=== PATIENT | female | born 1950 | race Caucasian/White ===

== ENCOUNTER → 2018-03-05 | Outpatient (CLI) | payer MEDICARE, BC ==
[~2018-03-05] MED LIST: COLACE100 MG PO; FARXIGA10 MG PO; GABAPENTIN800 M1 PO; HUMALOG100 UNIT/2 SUBQ; LOSARTAN-HCTZ1 EACH PO; METAMUCIL1 EAC1 PO; NORVASC10 MG PO; PERCOCET 10-321 EACH PO; TRULICITY1.5 MG/0.5 SUBQ; TYLENOL325 MG PO; XARELTO10 MG PO
== END ==
LOC: M.MRI 02-25 14:48
DX: S83.231A Complex tear of medial meniscus, current injury, right knee, initial encounter (principal); S83.281A Other tear of lateral meniscus, current injury, right knee, initial encounter; M17.0 Bilateral primary osteoarthritis of knee; M25.462 Effusion, left knee; M25.461 Effusion, right knee; M22.42 Chondromalacia patellae, left knee; M76.51 Patellar tendinitis, right knee; X58.XXXA Exposure to other specified factors, initial encounter; Y93.89 Activity, other specified; Y92.89 Other specified places as the place of occurrence of the external cause; Y99.8 Other external cause status

== ENCOUNTER 2018-03-31 06:59 | Inpatient (IN) | payer MEDICARE, BC ==
[2018-03-19 08:53] LABS: HEMATOCRIT 39.4 % (37.0-47.0); HEMOGLOBIN 12.8 gm/dL (12.0-15.0); MCH 27.5 pg (26.0-34.0); MCHC 32.5 g/dL (28.0-37.0); MCV 84.5 fL (80.0-100.0); MPV 11.8 fl. (7.2-11.1); RBC 4.66 mil/uL (4.20-5.00); RDW-CV 14.7 % (10.5-14.5); WBC 11.2 thou/uL (4.0-11.0)
[2018-03-19 08:56] LABS: URINE BILIRUBIN NEGATIVE (Negative); URINE BLOOD TRACE (Negative); URINE CLARITY CLEAR; URINE COLOR YELLOW; URINE GLUCOSE-RANDOM 3+ (Negative); URINE KETONES NEGATIVE (Negative); URINE LEUKOCYTES-REFLEX TRACE (Negative); URINE NITRITE-REFLEX NEGATIVE (Negative); URINE PROTEIN TRACE (Negative); URINE SPECIFIC GRAVITY 1.025 (1.005-1.030); URINE UROBILINOGEN 0.2 E.U./dl (0.2-1.0)
[2018-03-19 09:05] LABS: ALBUMIN 3.1 g/dL (3.4-5.0); CALCIUM 9.3 mg/dL (8.5-10.1); CREATININE 1.1 mg/dL (0.6-1.3); POTASSIUM 3.8 mmol/L (3.5-5.1); TOTAL BILIRUBIN 0.4 mg/dL (<0.1-1.0); TOTAL PROTEIN 7.5 g/dL (6.4-8.2)
[2018-03-19 09:14] LABS: PROTIME 10.1 Seconds (9.20-11.50)
[2018-03-19 09:26] LABS: BACTERIA-REFLEX 1-9 Few /HPF (None Seen); CASTS None Seen /LPF (None Seen); MUCUS 0-3 Light strn/LPF (None Seen); SQUAMOUS 4-10 Moderate /LPF (0-3); URINE RBC 0-2 Rare /HPF (0-2); URINE WBC-REFLEX 6-15 Few /HPF (0-5)
[2018-03-19 09:27] LABS: CRYSTALS None Seen /LPF (None Seen)
--- NOTE | 2018-03-19 13:05 | EKG ---
[place] [address] ELECTROCARDIOGRAM REPORT Name: JOERISHABH Carlene Room: PRE IN [facility]#: [id number] Admission: Attend Phys: Camron Cavazos Discharge: Date of : 46 Report #: [id number] THIS REPORT FOR: //name// [facility] Test Date: 2018-03-19 Test Time: 09:02:51 Pat Name: RISHABH DIAZ Department: Room: Gender: F Instrumental Music Teacher: : 1950 Requested By: Rene Nicole Order Number: [id number] Reading MD: Don Lundberg Measurements Intervals [place] Rate: 96 P: 35 AR: 174 QRS: -22 QRSD: 93 T: 58 QT: 371 QTc: 469 Interpretive Statements 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
[~2018-03-31] VITALS: Ht 160 cm; Wt 79.4 kg
[~2018-03-31 06:59] MED LIST changes: -COLACE100 MG PO; -METAMUCIL1 EAC1 PO; -PERCOCET 10-321 EACH PO; -XARELTO10 MG PO
[2018-03-31 08:00] VITALS: BP 173/94
[2018-03-31 11:35] VITALS: BP 140/86
[2018-04-01] VITALS (8 sets, daily range): BP systolic 125–152; BP diastolic 70–90
[2018-04-01 05:09] LABS: HEMATOCRIT 30.3 % (37.0-47.0); HEMOGLOBIN 9.7 gm/dL (12.0-15.0)
[2018-04-01] MEDS ORDERED: XARELTO10 MG PO (15:10)
[2018-04-01] MEDS ORDERED: PERCOCET 10-321 EACH PO (15:18)
[2018-04-01] MEDS ORDERED: COLACE100 MG PO (15:21)
[2018-04-01] MEDS ORDERED: METAMUCIL1 EAC1 PO (15:26)
--- NOTE | 2018-04-14 10:22 | OP ---
[facility] [address] [place] [address] OPERATIVE REPORT Name: RISHABH DIAZ Room: [address] IN M.R.#: [id number] Admission: 03/31/18 Attend Phys: Camron Cavazos Discharge: 04/01/18 Date of : 46 Report #: [id number] THIS REPORT FOR: //name// CC: Valentine Chato Licea DATE OF SERVICE: 03/31/2018 PREOPERATIVE DIAGNOSIS: Left knee osteoarthritis. POSTOPERATIVE DIAGNOSIS: Left knee osteoarthritis. PROCEDURE: Left total knee arthroplasty. SURGEON: Rene Nicole II, DO BILLIARD PARLOR MANAGER: PARUL Colby ANESTHESIA: General endotracheal. ESTIMATED BLOOD LOSS: 50 mL ANTIBIOTICS: Ancef preoperatively. DRAINS: Medium Hemovac. COMPLICATIONS: None. CONDITION OF THE PATIENT: Stable to recovery room. IMPLANTS: Listed in the operative record and progress note. BRIEF HISTORY: The patient was seen in the preoperative area. Preoperative H and P was performed. Site was marked. Questions were answered. Risks and benefits were discussed in detail about surgery. The patient wished to proceeding assuming all risks. OPERATIVE PROCEDURE: The patient was taken to the operative suite, placed supine on the operative table and given appropriate anesthesia. A well-padded tourniquet applied to the upper thigh, was inflated to 300 mmHg after gravity exsanguination. The operative knee was prepped and draped. Surgery began by a midline incision. This was carried down through subcutaneous tissues. A medial parapatellar arthrotomy was performed and carried down to bone. The patella was then everted and excess soft tissue removed from around the femur. Femoral cutting block was then applied and checked with a drop avis for rotational [facility] [address] [place] [address] OPERATIVE REPORT Name: RISHABH DIAZ Room: [address] IN [facility].#: [id number] Admission: 03/31/18 Attend Phys: Camron Cavazos Discharge: 04/01/18 Date of : 46 Report #: [id number] alignment, pinned into appropriate position and appropriate cuts were made. A 4-in-1 cutting block was then applied to check for rotational alignment, pinned in appropriate position and appropriate cuts were made. The tibia was then exposed. Excess meniscus was removed. Retractor was placed along the collateral ligaments. The tibial cutting guide was applied, pinned in appropriate position, checked with a drop avis for rotational alignment and slope, and appropriate cut was made. Tibial bone was removed. Tibial base plate was then applied, checked for rotational alignment with the drop avis and in appropriate position. The femur was then applied and a box cut was reamed. This was then trialed with the appropriate spacer, which showed excellent fit and fill and excellent stability of the knee through all range of motion. The patella was reamed to appropriate fashion and sized to appropriate size. Three peg holes were drilled. It was then trialed and showed excellent flexion and extension and excellent tracking of the patella within the groove. These trials were then removed. The tibia was punched in appropriate fashion. Bone ends were cleaned with Pulsavac irrigation. Cement was mixed and applied to the final implants. These were then malleted into position and held the knee in extension and compressed to allow cement to cure. After it cured, excess cement was removed utilizing a [place] and osteotome. Wound was then copiously irrigated and the final spacer was then malleted in position. Tourniquet was deflated. Hemostasis was maintained with electrocautery. Pain cocktail was injected. PRP gel was sprayed throughout the internal aspects the knee. Medium Hemovac drain was applied. Capsule was closed with #2 FiberWire and 1 Vicryl in buried fashion. Skin was closed with 2-0 Vicryl and running 3-0 Monocryl. Dermabond dressing applied. The patient was transferred to the recovery in stable condition. Counts were correct throughout the procedure. <ELECTRONICALLY SIGNED> By: Rene Nicole II, DO 04/14/18 [id number] Nicole II, DO /nt
== END 2018-04-01 15:55 | disposition home health service (06) | DRG 470 ==
LOC: M.TBA 06:59 → M.ORTHSURG 06:59 → M.PRE 06:59 → M.ORTHSURG 11:35
PROVIDERS: Orthopaedic Surgery; ADMIT Internal Medicine
PROC: 0SRD0J9 Replacement of Left Knee Joint with Synthetic Substitute, Cemented, Open Approach (ICD-10-PCS; principal; 2018-03-31)
DX: M17.12 Unilateral primary osteoarthritis, left knee (principal); I10 Essential (primary) hypertension; E11.9 Type 2 diabetes mellitus without complications; R51 Headache; R11.0 Nausea; M25.462 Effusion, left knee; Z88.8 Allergy status to other drugs, medicaments and biological substances; Z88.6 Allergy status to analgesic agent; Z79.899 Other long term (current) drug therapy; Z79.4 Long term (current) use of insulin; Z90.710 Acquired absence of both cervix and uterus; Z85.3 Personal history of malignant neoplasm of breast